=== PATIENT | male | born 1970 | race Caucasian/White ===

== ENCOUNTER 2019-10-27 15:22 | Outpatient (RCR) | payer OTHER, SELFPAY ==
[2019-09-14 16:16] LABS: INR 2.2; Prothrombin Time 23.7 Seconds (11.1-14.7)
[2019-10-27 16:30] LABS: INR 3.4
== END 2019-12-13 23:59 | disposition home or self-care (01) ==
LOC: ANHLAB 15:22
PROVIDERS: PCP Family Medicine; Visit Provider Internal Medicine Cardiovascular Disease
DX: I48.91 Unspecified atrial fibrillation (principal)
CPT/HCPCS: 36415; 85610

== ENCOUNTER 2020-04-19 09:39 | Outpatient (RCR) | payer OTHER, SELFPAY ==
[2020-02-20 17:14] LABS: INR 0.9; Prothrombin Time 11.8 Seconds (11.1-14.7)
[2020-04-19 10:06] LABS: INR 3.5; Prothrombin Time 34.7 Seconds (11.1-14.7)
== END 2020-05-20 23:59 | disposition home or self-care (01) ==
LOC: ANHLAB 09:39
PROVIDERS: PCP Family Medicine; Visit Provider Internal Medicine Cardiovascular Disease
DX: I48.91 Unspecified atrial fibrillation (principal)
CPT/HCPCS: 36415; 85610

== ENCOUNTER 2020-06-21 12:00 | Outpatient (RCR) | payer OTHER, SELFPAY ==
[2020-06-21 12:42] LABS: INR 2.4; Prothrombin Time 25.8 Seconds (11.1-14.7)
== END 2020-09-19 23:59 | disposition home or self-care (01) ==
LOC: ANHLAB 12:00
PROVIDERS: PCP Family Medicine; Visit Provider Internal Medicine Cardiovascular Disease
DX: I48.0 Paroxysmal atrial fibrillation (principal); I25.10 Atherosclerotic heart disease of native coronary artery without angina pectoris
CPT/HCPCS: 36415; 85610

== ENCOUNTER 2021-03-13 15:26 | Outpatient (CLI) | payer OTHER, SELFPAY ==
[2021-03-13 15:49] LABS: Basophils Absolute Auto 0.1 K/mm3 (0.0-0.1); Eosinophils Absolute Auto 0.1 K/mm3 (0-0.3); Eosinophils Percent Auto 0.8 % (0-4.4); Hematocrit 45.9 % (42.0-52.0); Hemoglobin 15.1 g/dL (14.0-18.0); Immature Granulocyte Absolute 0.04 K/mm3 (0.00-0.031); Immature Granulocyte Percent A 0.4 % (0-0.5); Lymphocytes Percent Auto 34.1 % (18.3-44.2); Mean Corpuscular HGB Conc 32.9 g/dl (32-36); Mean Corpuscular Hemoglobin 27.2 pg (26-34); Mean Corpuscular Volume 82.7 fl (80-100); Mean Platelet Volume 9.2 fl (7.4-10.4); Monocytes Absolute Auto 0.9 K/mm3 (0.1-0.6); Monocytes Percent Auto 8.1 % (2.6-8.5); Neutrophils Percent Auto 55.6 % (45.5-73.1); Platelet Count Result 356 k/mm3 (150-375); Red Blood Count 5.55 M/mm3 (4.6-6.20); Red Cell Distribution Width 13.8 % (11.5-14.5); White Blood Count 10.9 K/mm3 (4.5-10.0)
[2021-03-13 16:00] LABS: Alanine Aminotransferase 21 U/L (4-50); Albumin Level 4.3 g/dL (3.5-5.1); Alkaline Phosphatase 103 U/L (38-126); Anion Gap 8 mmol/L (8-16); Aspartate Amino Transferase 27 U/L (17-59); Bilirubin,Total 0.2 mg/dL (0.2-1.3); Blood Urea Nitrogen 15 mg/dL (9-20); Calcium 9.5 mg/dL (8.4-10.2); Carbon Dioxide 25 mmol/L (22-30); Chloride 103 mmol/L (98-107); Cholesterol 266 mg/dL (0-200); Estimated Glomerular Filt Rate > 60; Glucose 290 mg/dL (75-110); HDL Direct 36 mg/dL; Magnesium 1.7 mg/dL (1.6-2.3); Sodium 136 mmol/L (137-145); Triglycerides 440 mg/dL (<150)
[2021-03-13 16:12] LABS: LDL Cholesterol Direct 164 mg/dL
[2021-03-13 16:46] LABS: INR 0.9; Prothrombin Time 12.4 Seconds (11.1-14.7)
== END 2021-03-13 15:27 | disposition home or self-care (01) ==
LOC: ANHLAB 15:29
PROVIDERS: PCP Family Medicine; Visit Provider Internal Medicine Cardiovascular Disease
DX: E78.5 Hyperlipidemia, unspecified (principal); I48.0 Paroxysmal atrial fibrillation
CPT/HCPCS: 36415; 80053; 80061; 83735; 85025; 85610

== ENCOUNTER → 2021-03-28 03:49 | Outpatient (CLI) | payer OTHER, SELFPAY ==
[2021-03-28 18:53] LABS: SARS-CoV-2 RNA PCR Negative
== END ==
PROVIDERS: PCP Family Medicine; Visit Provider Specialist
DX: Z01.812 Encounter for preprocedural laboratory examination (principal); Z20.822 Contact with and (suspected) exposure to COVID-19
CPT/HCPCS: C9803; U0003; U0005

== ENCOUNTER 2021-03-31 01:24 | Day surgery (SDC) | payer OTHER, SELFPAY ==
[2021-03-31] VITALS (14 sets, daily range): BP systolic 105–142; BP diastolic 65–108; PULSE 77–90; RESP 13–24; TEMP 36.4; O2SAT 96–100; BMI 23.7
[2021-03-31 09:32] LABS: Basophils Absolute Auto 0.2 K/mm3 (0.0-0.1); Basophils Percent Auto 1.6 % (0.2-1.2); Eosinophils Absolute Auto 0.2 K/mm3 (0-0.3); Eosinophils Percent Auto 2.2 % (0-4.4); Hemoglobin 16.8 g/dL (14.0-18.0); Immature Granulocyte Absolute 0.07 K/mm3 (0.00-0.031); Immature Granulocyte Percent A 0.7 % (0-0.5); Lymphocytes Absolute Auto 3.01 K/mm3 (0.9-3.2); Lymphocytes Percent Auto 29.8 % (18.3-44.2); Mean Corpuscular HGB Conc 33.6 g/dl (32-36); Mean Corpuscular Hemoglobin 27.4 pg (26-34); Mean Corpuscular Volume 81.6 fl (80-100); Mean Platelet Volume 9.1 fl (7.4-10.4); Neutrophils Absolute Auto 5.6 K/mm3 (1.3-6.7); Neutrophils Percent Auto 55.7 % (45.5-73.1); Platelet Count Result 355 k/mm3 (150-375); Red Blood Count 6.13 M/mm3 (4.6-6.20); Red Cell Distribution Width 13.4 % (11.5-14.5); White Blood Count 10.1 K/mm3 (4.5-10.0)
[2021-03-31 09:42] LABS: Anion Gap 9 mmol/L (8-16); Blood Urea Nitrogen 19 mg/dL (9-20); Calcium 10.2 mg/dL (8.4-10.2); Carbon Dioxide 27 mmol/L (22-30); Chloride 99 mmol/L (98-107); Estimated Glomerular Filt Rate > 60; Glucose 326 mg/dL (65-110); Potassium 4.4 mmol/L (3.4-5.0); Sodium 135 mmol/L (137-145)
[2021-03-31 09:54] LABS: INR 0.8; Prothrombin Time 10.9 Seconds (11.1-14.7)
--- NOTE | 2021-03-31 10:08 | WPDMODSED ---
Moderate Sedation Note-Pt Data Patient Data Diagnosis: exertional chest discomfort coronary disease with previous surgical revascularization Present Complaint: exertional right-sided chest and right jaw pain Procedure to be performed/Plan: coronary angiography mammary artery graft angiography radial artery graft angiography left ventriculography Allergies Allergy/AdvReac Type Severity Reaction Status Date / Time varenicline Allergy Unknown Unknown Verified 03/13/21 14:48 Home Medications Medication Instructions Recorded Confirmed Type fenofibrate 160 mg tablet 160 mg PO DAILY 07/07/19 03/31/21 History loperamide 2 mg capsule 2 mg PO Q4H 07/07/19 03/31/21 History losartan 25 mg tablet 25 mg PO DAILY 07/07/19 03/31/21 History nitroglycerin 0.4 mg sublingual 0.4 mg SUBLINGUAL Q5M PRN 07/07/19 03/31/21 History tablet omeprazole magnesium 20 mg 20 mg PO DAILY 07/07/19 03/31/21 History tablet,delayed release ondansetron HCl 8 mg tablet 8 mg PO Q8H 07/07/19 03/31/21 History amlodipine 5 mg tablet 5 mg PO DAILY #30 tablet 08/17/19 03/31/21 Rx acetaminophen 650 mg 1,300 mg PO Q12H tablet 09/14/19 03/31/21 History tablet,extended release alogliptin 25 mg tablet 25 mg PO DAILY 09/14/19 03/31/21 History atorvastatin 80 mg tablet 80 mg PO QPM tablet 09/14/19 03/31/21 History clonazepam 0.5 mg tablet 0.5 mg PO TID tablet 09/14/19 03/31/21 History glipizide 5 mg tablet 5 mg PO BID tablet 09/14/19 03/31/21 History ropinirole 2 mg tablet 2 mg PO TID 09/14/19 03/31/21 History sertraline 100 mg tablet 100 mg PO DAILY 09/14/19 03/31/21 History isosorbide mononitrate 30 mg 30 mg PO DAILY #90 tablet 09/21/19 03/31/21 Rx tablet,extended release 24 hr sotalol 80 mg tablet See Rx Instructions .ROUTE 09/29/20 03/31/21 Rx .COMPLEX #60 tablet aspirin 81 mg tablet,delayed 81 mg PO DAILY 03/13/21 03/31/21 History release Current Medications: Active Medications Sodium Chloride (Normal Saline Iv) 500 mls @ 100 mls/hr IV CONT .Q5H KAILEY Sedation/Anesthesia: No previous sedation/anesthesia problems (including family history). [facility] Past Medical History Medical History Chest pain in adult TYSON (dyspnea on exertion) Hyperlipidemia, unspecified Hypersomnia Hypertension complicating diabetes Intermittent palpitations PAF (paroxysmal atrial fibrillation) Recurrent angina status post coronary artery bypass graft Right arm pain Severe episode of recurrent major depressive disorder, without psychotic features Type 2 diabetes mellitus without complication, without long-term current use of insulin Surgical History Surgical History Presence of aortocoronary bypass graft Family History Family History Mother Family history of obesity Family history of diabetes mellitus in first degree relative Diabetes mellitus Family history of cardiovascular disease Father Family history of diabetes mellitus in first degree relative Diabetes mellitus Family history of cardiovascular disease Social History Social History Smoking status: Current every day smoker Alcohol intake: current Mod Sed Physical Exam Physical Exam Pre Procedural Exam: Normal: Appearance, Throat, Airway, Heart Size, Heart Rate, Heart Rhythm and Neuro Exam and Variation: Lungs ( breath sounds are clear but diminished in both lung vazquez) and Extremities ( no edema, adequate femoral artery pulses but reduced pulses below the femoral triangle) Hours since solid foods: 12 Hours since liquid intake: 12 Mallampati Classification: class II Internal Medicine - PN: Obj Da Vital Signs Vital Signs: Vital Signs - 24 hr 03/31/21 09:46 Temperature 36.4 C Pulse Rate 88 Respiratory Rate 13 Blood Pressure 130/96 H Pulse Oximetry 99
--- NOTE | 2021-03-31 11:05 | WPDCARDPROC ---
Cardiac Cath Procedure Note Date of procedure:: 03/31/21 Performing physician:: Reilly Underwood MD Indication:: Exertional chest discomfort history of coronary disease previous CABG Brief clinical history:: this is a 50-year-old patient with premature coronary disease who was referred for surgical revascularization at a young age because of left main coronary disease. He received an HILDA graft to the LAD and a radial artery graft to the OM branch. Because of ongoing symptoms of exertional chest discomfort angiography has been recommended for today. The patient state that the symptoms are chronic and stable and been present since his operation. Procedure Procedure performed:: Left ventriculogram coronary angiogram radial artery graft angiogram internal mammary graft angiogram Sedation/Medication given:: fentanyl 50 mg Versed 2 mg case start time 10:35 a.m. case end time 11:02 a.m. sedation provided by Daquan Andujar RN, trained observer Access site:: right femoral artery Estimated blood loss:: 15-20 cc Procedure note:: patient was brought to the cardiac catheterization lab in the postabsorptive state the right femoral triangle was prepared and draped in the usual fashion. Using the modified Seldinger technique the common femoral artery was punctured and a 5 [place] vascular sheath was placed. After this left heart catheterization was carried out. I used a 5 [place] angled pigtail catheter to measure left-sided hemodynamics and injected LV g in the KILLIAN projection after this the left coronary artery was engaged and injected using a 5 [place] FL4 catheter. The right coronary artery was engaged and injected using a 5 [place] JR4 catheter. The right coronary catheter was then used to engage and inject the radial artery graft. I used a 5 [place] IM catheter to engage and inject the internal mammary graft to the LAD. Following this the cineangiograms were reviewed and the case was terminated. I performed a femoral angiogram through the sheath and decided to remove the sheath with direct manual compression. 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 Findings:: Hemodynamics: Central aortic pressure is 130 over 76 left ventricle 130/0 end-diastolic pressure 10 there is no systolic gradient on pullback across the aortic valve. Left ventricle: The LV is normal in size all segments appear to contract appropriately the anterior wall is mildly hypodynamic there are no akinetic segments though ejection fraction is visually estimated to be 50-55%. The left main coronary artery is small to medium in caliber and appears to be patent there is minimal narrowing in the day distal aspect of the left main angiographically today it appears to be no more than 30-40% stenosis. The left anterior descending is 100% occluded just shortly after its origination the left main the circumflex is a medium caliber vessel the mid OM branch appears to be 100% occluded there is a stump in the mid portion of the trunk of the circumflex. There was a more distal OM branch that has moderate diffuse disease 1 segment of which appears to be about 80% eccentric stenosis. The right coronary artery is large in caliber and dominant to the posterior circulation the right coronary artery has mild diffuse atherosclerotic luminal irregularities but no functionally significant stenosis is identified. Conclusion:: 1. Coronary artery disease with previous CABG. 2. 100% occlusion of the proximal LAD 3. 100% occlusion of the OM circumflex branch and about 80% stenosis of a more distal OM branch Which is diffusely diseased. 4. mild diffuse disease of the dominant right coronary artery 5. Patent HILDA graft to the LAD 6. patent but exceedingly small free graft to a diminutive OM circumflex branch which is resulting is a so called string sign of the HILDA graft as it is providing flow to an
--- NOTE | 2021-03-31 16:45 | SUR.PHASEII ---
Pt up to chair at 1600. tolerated well. Sight remains clean, dry and intact without signs of hematoma or bruising. Pt voiding per urinal clear wellington urine.
--- NOTE | 2021-03-31 17:07 | SUR.PHASEII ---
Discharge instructions reviewed with patient with stated understanding. Site remains intact. no bleeding or bruising noted. Discharged via wheelchair to personal vehicle with girlfriend driving.
== END 2021-03-31 17:06 | disposition home or self-care (01) ==
PROVIDERS: PCP Family Medicine; Visit Provider Specialist
PROC: 4A023N7 Measurement of Cardiac Sampling and Pressure, Left Heart, Percutaneous Approach (ICD-10-PCS; CPT 93459; principal; 2021-03-31 10:00)
DX: I25.810 Atherosclerosis of coronary artery bypass graft(s) without angina pectoris (principal); R07.89 Other chest pain; Z95.1 Presence of aortocoronary bypass graft; E78.5 Hyperlipidemia, unspecified; I10 Essential (primary) hypertension; F17.210 Nicotine dependence, cigarettes, uncomplicated; I48.0 Paroxysmal atrial fibrillation; G47.10 Hypersomnia, unspecified; R00.2 Palpitations; E11.59 Type 2 diabetes mellitus with other circulatory complications; R06.09 Other forms of dyspnea
CPT/HCPCS: 36415; 80048; 85025; 85610; 93459; C1887; C1894; J0461; J1644; J2250; J3010; J7040

== ENCOUNTER 2021-05-16 07:40 | Outpatient (CLI) | payer OTHER, SELFPAY ==
--- NOTE | ~2021-05-16 | US_ITS ---
EXAMINATION: US arterial ankle brachial ind DATE: 05/16/2021 08:38 INDICATION: Peripheral vascular disease. TECHNIQUE: Segmental pressures and plethysmographic and Doppler waveforms of the brachial and lower e xtremity arteries were obtained. COMPARISON: None. FINDINGS: Right and left brachial artery pressures of 154 mm Hg and 156 mm Hg, respectively, are concordant (no rmal difference <= 30 mmHg). The right ankle-brachial index (DIANA) is 0.87 (normal >= 0.9-1.0). The right great toe-brachial index (TBI) is 0.76 (normal >= 0.65). Arterial Doppler waveforms demonstrate brisk systolic upstrokes at zuly th the right posterior tibial and dorsalis pedis arteries. The left DIANA is 0.93. The left TBI is 0.90. Arterial Doppler waveforms demonstrate brisk systolic ups trokes at both the left posterior and dorsalis pedis arteries. IMPRESSION: 1. Mild arterial occlusive disease to the right lower limb with mildly decreased DIANA. Normal TBI. 2. No significant arterial occlusive disease to the left lower limb with normal left DIANA and TBI. Reviewed, dictated and finalized at location A. IMPRESSION: 1. Mild arterial occlusive disease to the right lower limb with mildly decrease d DIANA. Normal TBI. 2. No significant arterial occlusive disease to the left lower limb with normal left DIANA and TBI.
== END 2021-05-16 07:41 | disposition home or self-care (01) ==
PROVIDERS: PCP Family Medicine; Visit Provider Internal Medicine Cardiovascular Disease
DX: I73.9 Peripheral vascular disease, unspecified (principal)
CPT/HCPCS: 93922

== ENCOUNTER 2021-05-20 08:02 | Outpatient (CLI) | payer OTHER, SELFPAY ==
--- NOTE | 2021-06-01 15:36 | WPDSLEEPSTUD ---
Sleep Study Date of Study: 05/20/21 Ordering Provider: Shabbir Albarran DO Interpreting Physician: Ludmila Chopra MD Sleep Study Type: Polysomnogram Height: 1.8 m Weight: 79.379 kg Body Mass Index: 24.4 Neck Circumference (inches): 15.5 Benedict: 11 Reason for Sleep Study Hypersomnia Sleep History Toni Mina is a 50 year old man with A history of sleep apnea in the past. He has had a prior sleep study. He stops breathing during sleep. There is a family history with both parents having sleep apnea. he occasionally awakens from sleep feeling short of breath. He frequently awakens at night with heartburn, belching or coughing. He frequently snores and occasionally is loud enough to disturb others. He occasionally has trouble sleeping with a cold. He occasionally wakes up gasping for breath at night and has breathing problems reported to him by others. he does not sweat excessively at night. He occasionally notices his heart pounding or beating irregularly at night. He rarely falls asleep during the day, however he rarely falls asleep while driving. he does not have loss of muscle tone with strong emotion. He does not have daytime difficulties due to excessive sleepiness. he does not feel paralyzed on waking or falling asleep. He rarely has vivid dreamlike scenes upon awakening or falling asleep. He is not afraid to go to sleep. He frequently has nightmares. He occasionally remembers his dreams. He rarely has racing thoughts or feelings of sadness or depression. He rarely has anxiety. He occasionally has muscular tension and notices parts of his body jerking. He occasionally kicks at night. He occasionally has crawling and aching feelings in his legs. He occasionally has leg pain during the night. He does not have morning jaw pain. He does not grind his teeth during sleep. He frequently is bothered by pain during the day. He occasionally is awakened by pain at night. He occasionally wakes up feeling stiff in the morning with sore achy muscles, rarely wakes up with pain in the neck and spine. He has fatigue, sexual problems, memory problems, headaches and he takes antacids regularly. Normal bedtime is between 10:00 p.m. and midnight, taking an hour sometimes 2 hours to fall asleep. He typically wakes up 3-4 times at night to go to the bathroom and sometimes he takes a hot shower. It can taking 30 minutes to fall asleep again. He wakes in the morning at 6:30 a.m.. His weekend schedule is different, going to bed between midnight and 3:00 a.m. but also wakes at 6:30 a.m.. His sleep is disturbed by nightmares and frequent bladder pressure. He occasionally takes naps. A short nap is not refreshing. He is usually drowsy in the morning for 2 hours or longer. do habits: Tobacco 2 packs a day. Caffeine 1 cup of coffee. No alcohol or recreational drugs. [facility] Past Medical History Medical History (Updated 06/02/21 @ 11:24 by Ludmila Chopra MD) Chest pain in adult TYSON (dyspnea on exertion) GERD (gastroesophageal reflux disease) Hyperlipidemia, unspecified Hypersomnia Hypertension complicating diabetes Intermittent palpitations PAF (paroxysmal atrial fibrillation) Recurrent angina status post coronary artery bypass graft Right arm pain Severe episode of recurrent major depressive disorder, without psychotic features Type 2 diabetes mellitus without complication, without long-term current use of insulin Surgical History Surgical History Presence of aortocoronary bypass graft Family History Family History (Updated 06/02/21 @ 11:01 by Ludmila Chopra MD) Mother Family history of obesity Family history of diabetes mellitus in first degree relative Diabetes mellitus Family history of cardiovascular disease Obstructive sleep apnea Father Family history of diabetes mellitus in first degree relative Diabetes mellitus Family history of cardiovascular d
[2021-06-02 11:37] VITALS: BMI 24.4
== END 2021-05-21 02:06 | disposition home or self-care (01) ==
PROVIDERS: PCP Family Medicine; Visit Provider Internal Medicine Cardiovascular Disease
DX: G47.10 Hypersomnia, unspecified (principal); G47.33 Obstructive sleep apnea (adult) (pediatric)
CPT/HCPCS: 95810

== ENCOUNTER 2021-07-14 08:59 | Outpatient (RCR) | payer OTHER, SELFPAY ==
[2021-07-14 10:08] LABS: INR 0.9; Prothrombin Time 11.6 Seconds (11.1-14.7)
== END 2021-10-12 23:59 | disposition home or self-care (01) ==
LOC: ANHLAB 08:59
PROVIDERS: PCP Family Medicine; Visit Provider Internal Medicine Cardiovascular Disease
DX: Z51.81 Encounter for therapeutic drug level monitoring (principal); I48.0 Paroxysmal atrial fibrillation; Z79.01 Long term (current) use of anticoagulants
CPT/HCPCS: 36415; 85610

== ENCOUNTER 2023-03-19 10:14 | Outpatient (CLI) | payer MEDICARE, MEDICAID, SELFPAY ==
[2023-03-19 10:51] LABS: Hemoglobin A1C 11.1 % (<5.7)
[2023-03-23 08:48] LABS: Testosterone Total 455 ng/dL (250-1100)
== END 2023-03-19 10:15 | disposition home or self-care (01) ==
PROVIDERS: Visit Provider Urology
DX: N52.01 Erectile dysfunction due to arterial insufficiency (principal); E11.9 Type 2 diabetes mellitus without complications
CPT/HCPCS: 36415; 83036; 84403

== ENCOUNTER 2023-03-31 12:00 | Outpatient (RCR) | payer MEDICARE, MEDICAID, SELFPAY ==
[2023-03-19 10:54] LABS: INR 2.4; Prothrombin Time 27.5 Seconds (11.1-14.7)
[2023-03-31 12:34] LABS: INR 1.2; Prothrombin Time 15.5 Seconds (11.1-14.7)
== END 2023-06-17 23:59 | disposition home or self-care (01) ==
LOC: ANHLAB 12:00
PROVIDERS: Visit Provider Internal Medicine Cardiovascular Disease
DX: I48.0 Paroxysmal atrial fibrillation (principal); E11.59 Type 2 diabetes mellitus with other circulatory complications; I10 Essential (primary) hypertension
CPT/HCPCS: 36415; 83036; 84403; 85610

== ENCOUNTER 2023-05-17 10:27 | Outpatient (CLI) | payer MEDICARE, MEDICAID, SELFPAY ==
[2023-05-17 11:09] LABS: Alanine Aminotransferase 23 U/L (6-50); Albumin Level 4.3 g/dL (3.5-5.1); Alkaline Phosphatase 84 U/L (38-126); Anion Gap 8 mmol/L (8-16); Aspartate Amino Transferase 25 U/L (17-59); Bilirubin,Total 0.6 mg/dL (0.2-1.3); Blood Urea Nitrogen 18 mg/dL (9-20); Carbon Dioxide 28 mmol/L (22-30); Chloride 101 mmol/L (98-107); Cholesterol 176 mg/dL (0-200); Estimated Glomerular Filt Rate 54; Glucose 143 mg/dL (65-110); HDL Direct 30 mg/dL; Potassium 3.8 mmol/L (3.4-5.0); Sodium 137 mmol/L (137-145); Triglycerides 180 mg/dL (<150)
[2023-05-17 11:20] LABS: LDL Cholesterol Direct 109 mg/dL
== END 2023-05-17 10:28 | disposition home or self-care (01) ==
PROVIDERS: Visit Provider Internal Medicine Cardiovascular Disease
DX: E78.5 Hyperlipidemia, unspecified (principal)
CPT/HCPCS: 36415; 80053; 80061

== ENCOUNTER 2023-08-05 09:41 | Outpatient (CLI) | payer MEDICARE, MEDICAID, SELFPAY ==
[2023-08-05 11:40] LABS: INR 2.2; Prothrombin Time 25.7 Seconds (11.1-14.7)
[2023-08-05 11:41] LABS: Partial Thromboplastin Time 41.1 SECONDS (22.3-36.8)
[2023-08-05 11:51] LABS: Anion Gap 12 mmol/L (8-16); Blood Urea Nitrogen 18 mg/dL (9-20); Calcium 10.4 mg/dL (8.4-10.2); Carbon Dioxide 27 mmol/L (22-30); Chloride 101 mmol/L (98-107); Estimated Glomerular Filt Rate > 60; Glucose 138 mg/dL (65-110); Potassium 3.8 mmol/L (3.4-5.0); Sodium 140 mmol/L (137-145)
[2023-08-05 13:55] LABS: Hemoglobin A1C 9.1 % (<5.7)
== END 2023-08-05 09:42 | disposition home or self-care (01) ==
LOC: ANHSURGERY 09:46
PROVIDERS: Anesthesiology; PCP Internal Medicine Cardiovascular Disease; Visit Provider Urology
DX: N52.9 Male erectile dysfunction, unspecified (principal); Z79.01 Long term (current) use of anticoagulants; E11.9 Type 2 diabetes mellitus without complications; Z01.818 Encounter for other preprocedural examination
CPT/HCPCS: 36415; 80048; 83036; 85610; 85730; 87086

== ENCOUNTER 2023-08-05 11:48 | Outpatient (RCR) | payer MEDICARE, MEDICAID, SELFPAY ==
[2023-08-05 12:41] LABS: INR 2.2; Prothrombin Time 25.9 Seconds (11.1-14.7)
== END 2023-11-03 23:59 | disposition home or self-care (01) ==
LOC: ANHLAB 11:48
PROVIDERS: PCP Family Medicine; Visit Provider Internal Medicine Cardiovascular Disease
DX: I48.0 Paroxysmal atrial fibrillation (principal); N52.9 Male erectile dysfunction, unspecified; I10 Essential (primary) hypertension; E11.59 Type 2 diabetes mellitus with other circulatory complications
CPT/HCPCS: 36415; 80048; 83036; 85610; 85730; 87086

== ENCOUNTER 2024-01-12 11:36 | Outpatient (RCR) | payer MEDICARE, MEDICAID, SELFPAY ==
[2024-01-12 13:30] LABS: INR 2.9; Prothrombin Time 32.9 Seconds (11.1-14.7)
== END 2024-04-11 23:59 | disposition home or self-care (01) ==
LOC: ANHLAB 11:36
PROVIDERS: PCP Family Medicine; Visit Provider Internal Medicine Cardiovascular Disease
DX: I48.0 Paroxysmal atrial fibrillation (principal)
CPT/HCPCS: 36415; 85610